=== PATIENT | female | born 1970 | race Caucasian/White ===

== ENCOUNTER 2025-04-24 23:52 | Emergency (ER) | payer OTHER ==
[~2025-04-24] VITALS: Ht 147.3 cm; Wt 99.8 kg
[2025-04-25 00:47] VITALS: BP 114/70
[2025-04-25 01:51] LABS: PLATELET COUNT (AUTO) 243 K/uL (179-408); RED BLOOD CELL COUNT(AUTO) 4.55 MIL/uL (3.63-4.92); RED CELL DISTRIBUTION WIDTH 13.0 % (12.3-17.7); WHITE BLOOD COUNT (AUTO) 8.5 K/uL (3.8-11.8)
[2025-04-25 02:01] LABS: CREATININE 0.6 mg/dL (0.6-1.3); SODIUM SERUM 142.0 mmol/L (136-145); UREA NITROGEN, BLOOD 16.0 mg/dL (7-18)
[2025-04-25 02:07] LABS: ASPARTATE AMINOTRANSFERASE 15.0 U/L (15-37); TOTAL PROTEIN, SERUM 7.3 g/dL (6.4-8.2)
[2025-04-25 05:16] VITALS: BP 114/70; TEMP 98; O2SAT 100
== END 2025-04-25 05:17 | disposition home or self-care (01) ==
LOC: ER 23:59
DX: R00.2 Palpitations (principal); R20.2 Paresthesia of skin; Z85.038 Personal history of other malignant neoplasm of large intestine
CPT/HCPCS: 36415; 71045; 84443; 84484; 85025; A4606; A4663